=== PATIENT | female | born 1980 | race Caucasian/White ===

== ENCOUNTER 2020-02-01 10:00 | Outpatient (CLI) | payer BC, SELFPAY ==
[2020-02-01 10:24] LABS: Basophils Absolute Auto 0.1 K/mm3 (0.0-0.1); Basophils Percent Auto 0.8 % (0.2-1.2); Eosinophils Absolute Auto 0.3 K/mm3 (0-0.3); Eosinophils Percent Auto 3.7 % (0-4.4); Hematocrit 42.7 % (37.0-47.0); Hemoglobin 14.5 g/dL (12.0-15.0); Immature Granulocyte Absolute 0.02 K/mm3 (0.00-0.031); Immature Granulocyte Percent A 0.3 % (0-0.5); Lymphocytes Absolute Auto 1.87 K/mm3 (0.9-3.2); Lymphocytes Percent Auto 24.1 % (18.3-44.2); Mean Corpuscular Hemoglobin 31.9 pg (26-34); Mean Corpuscular Volume 93.8 fl (80-100); Mean Platelet Volume 10.2 fl (7.4-10.4); Monocytes Absolute Auto 0.7 K/mm3 (0.1-0.6); Monocytes Percent Auto 8.8 % (2.6-8.5); Neutrophils Absolute Auto 4.9 K/mm3 (1.3-6.7); Neutrophils Percent Auto 62.3 % (45.5-73.1); Platelet Count Result 259 k/mm3 (150-375); Red Blood Count 4.55 M/mm3 (4.2-5.4); Red Cell Distribution Width 12.4 % (11.5-14.5); White Blood Count 7.8 K/mm3 (4.5-10.0)
[2020-02-01 10:43] LABS: Alanine Aminotransferase 15 U/L (4-35); Albumin Level 4.4 g/dL (3.5-5.1); Alkaline Phosphatase 86 U/L (38-126); Aspartate Amino Transferase 29 U/L (14-36); Bilirubin,Total 0.5 mg/dL (0.2-1.3); Blood Urea Nitrogen 14 mg/dL (7-17); Calcium 9.1 mg/dL (8.4-10.2); Carbon Dioxide 27 mmol/L (22-30); Chloride 105 mmol/L (98-107); Cholesterol 188 mg/dL (0-200); Estimated Glomerular Filt Rate > 60; Glucose 88 mg/dL (65-105); HDL Direct 66 mg/dL; Sodium 136 mmol/L (137-145); Triglycerides 131 mg/dL (<150)
[2020-02-01 10:53] LABS: LDL Cholesterol Direct 95 mg/dL
[2020-02-01 11:11] LABS: Thyroid Stimulating Hormone 0.587 uIU/mL (0.465-4.680)
[2020-02-01 11:20] LABS: Vitamin D 25 Hydroxy 41.2 ng/mL
[2020-02-03 21:38] LABS: FSH 5.6 mIU/mL (***)
== END 2020-02-01 10:01 | disposition home or self-care (01) ==
PROVIDERS: Visit Provider Obstetrics & Gynecology
DX: Z01.419 Encounter for gynecological examination (general) (routine) without abnormal findings (principal)
CPT/HCPCS: 36415; 80053; 80061; 82306; 83001; 84443; 85025

== ENCOUNTER 2021-02-12 09:49 | Outpatient (CLI) | payer OTHER, SELFPAY ==
[2021-02-12 19:20] LABS: Basophils Absolute Auto 0.1 K/mm3 (0.0-0.1); Basophils Percent Auto 1.1 % (0.2-1.2); Eosinophils Absolute Auto 0.4 K/mm3 (0-0.3); Eosinophils Percent Auto 7.8 % (0-4.4); Hematocrit 43.4 % (37.0-47.0); Hemoglobin 14.5 g/dL (12.0-15.0); Immature Granulocyte Absolute 0.02 K/mm3 (0.00-0.031); Immature Granulocyte Percent A 0.4 % (0-0.5); Lymphocytes Absolute Auto 1.44 K/mm3 (0.9-3.2); Lymphocytes Percent Auto 25.6 % (18.3-44.2); Mean Corpuscular HGB Conc 33.4 g/dl (32-36); Mean Corpuscular Hemoglobin 32.2 pg (26-34); Mean Corpuscular Volume 96.2 fl (80-100); Mean Platelet Volume 10.7 fl (7.4-10.4); Monocytes Absolute Auto 0.4 K/mm3 (0.1-0.6); Monocytes Percent Auto 7.3 % (2.6-8.5); Neutrophils Absolute Auto 3.3 K/mm3 (1.3-6.7); Neutrophils Percent Auto 57.8 % (45.5-73.1); Platelet Count Result 294 k/mm3 (150-375); Red Blood Count 4.51 M/mm3 (4.2-5.4); Red Cell Distribution Width 12.2 % (11.5-14.5); White Blood Count 5.6 K/mm3 (4.5-10.0)
[2021-02-12 19:22] LABS: Alanine Aminotransferase 14 U/L (4-35); Alkaline Phosphatase 78 U/L (38-126); Anion Gap 7 mmol/L (8-16); Aspartate Amino Transferase 25 U/L (14-36); Bilirubin,Total 0.5 mg/dL (0.2-1.3); Blood Urea Nitrogen 15 mg/dL (7-17); Calcium 9.5 mg/dL (8.4-10.2); Carbon Dioxide 24 mmol/L (22-30); Chloride 108 mmol/L (98-107); Cholesterol 183 mg/dL (0-200); Estimated Glomerular Filt Rate > 60; Glucose 91 mg/dL (65-105); HDL Direct 69 mg/dL; Potassium 4.3 mmol/L (3.4-5.0); Sodium 139 mmol/L (137-145); Triglycerides 98 mg/dL (<150)
[2021-02-12 19:32] LABS: LDL Cholesterol Direct 92 mg/dL
[2021-02-12 20:07] LABS: Vitamin D 25 Hydroxy 45.7 ng/mL
[2021-02-12 20:21] LABS: Thyroid Stimulating Hormone Reflex 0.374 uIU/mL (0.465-4.68)
[2021-02-12 20:49] LABS: Free T4 Free Thyroxine Reflex 1.17 ng/dL (0.78-2.19)
[2021-02-12 21:44] LABS: Total Triiodothyronine (T3) 1.56 NG/ML (0.97-1.69)
[2021-02-16 19:01] LABS: Testosterone Free 1.7 pg/mL (0.1-6.4); Testosterone Total 19 ng/dL (2-45)
== END 2021-02-12 09:50 | disposition home or self-care (01) ==
LOC: ANHBWCLAB 09:51
PROVIDERS: Visit Provider Obstetrics & Gynecology
DX: Z00.00 Encounter for general adult medical examination without abnormal findings (principal); R68.82 Decreased libido
CPT/HCPCS: 36415; 80053; 80061; 82306; 84402; 84403; 84439; 84443; 84480; 85025

== ENCOUNTER 2021-03-01 13:31 | Outpatient (CLI) | payer OTHER, SELFPAY | END 2021-03-01 13:32 | disposition home or self-care (01) | LOC: ANHBWCLAB 13:33 | PROVIDERS: Visit Provider Obstetrics & Gynecology | DX: R79.89 Other specified abnormal findings of blood chemistry (principal) | CPT/HCPCS: 36415; 84436 ==

== ENCOUNTER → 2021-05-10 12:01 | Outpatient (CLI) | payer OTHER, SELFPAY ==
--- NOTE | ~2021-05-10 | XR_ITS ---
EXAMINATION: XR foot RT min 3V, XR toe 1st RT min 2V EXAM DATE: 05/10/2021 12:31 (accession [id number]), 05/10/2021 12:32 (accession [id number]) INDICATION: Right 1st MTP pain after tripping and hitting toe . Initial encounter. Pt tripped over he r dog x 3 weeks ago. Right 1st MTP pain with swelling since. TECHNIQUE: Right foot dorsoplantar, lateral and oblique projections obtained and reviewed. Right 1s t toe frontal, lateral and oblique projections obtained and reviewed. There is no prior study for comparison. FINDINGS: Right metatarsal bones unremarkable. 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 There are no acute right foot, 1st toe fractures or dislocations identified. T here is no subcutaneous gas. The soft tissue is unremarkable. There are no radiopaque foreign bodi es. Small posterior, inferior calcaneal spurs. IMPRESSION: No acute osseous findings. Reviewed, dictated and finalized at location B. IMPRESSION: No acute osseous findings. IMPRESSION: No acute osseous findings.
== END ==
PROVIDERS: PCP Hospitalist; Visit Provider Chiropractor
DX: M79.674 Pain in right toe(s) (principal)
CPT/HCPCS: 73630; 73660

== ENCOUNTER 2021-05-10 14:25 | Outpatient (CLI) | payer OTHER, SELFPAY ==
--- NOTE | ~2021-05-10 | MM_ITS ---
EXAMINATION: MM screening elsie BI w olena HISTORY: Screening mammogram TECHNIQUE: Craniocaudal and mediolateral oblique 3-D tomosynthesis images were obtained and synthetic 2-D images were generated. CAD analysis was submitted and interpreted. COMPARISON: No prior mammogram is available for comparison at this institution. BREAST PARENCHYMAL COMPOSITION: There are scattered areas of fibroglandular density. FINDINGS: There is no evidence of suspicious mass, calcification, or architectural distortion to sugg est malignancy in either breast. There has been no suspicious interval change. IMPRESSION: 1. No mammographic evidence of malignancy. 2. Recommend routine screening mammography in one year. BI-RADS Category 1: Negative Reviewed, dictated and finalized at location A.
== END 2021-05-10 14:26 | disposition home or self-care (01) ==
LOC: ANHIMG 14:27
PROVIDERS: PCP Hospitalist; Visit Provider Obstetrics & Gynecology
DX: Z12.31 Encounter for screening mammogram for malignant neoplasm of breast (principal)
CPT/HCPCS: 77063; 77067

== ENCOUNTER → 2021-08-09 13:15 | Outpatient (CLI) | payer OTHER, SELFPAY ==
--- NOTE | ~2021-08-09 | US_ITS ---
EXAMINATION: US thyroid DATE: 08/09/2021 13:43 INDICATION: Other specified abnormal findings of blood chemistry. Thyroid nodules. TECHNIQUE: Multiple ultrasound images of the thyroid were obtained. COMPARISON: 08/05/2018 FINDINGS: The right thyroid lobe measures 7.4 x 2.3 x 2.3 cm. The left thyroid lobe measures 7.4 x 2.6 x 2.7 c m. There is heterogeneous echogenicity with coarsened echotexture throughout both thyroid lobes mallory g with a few thyroid nodules. There are multiple bilateral thyroid nodules, the largest in the inferi or left thyroid is a complex solid 3.2 cm TI RADS 4 nodule not significantly changed since at the farzana e of a biopsy on 06/09/2017 at which time the nodule measured 3.0 cm and with biopsy pathology consis tent with benign follicular nodule with features of hemorrhagic cyst . Remaining nodules in the left and right thyroid including combination of 1.5 cm or smaller TI RADS 3 and TI-RADS 4 nodules which d o not appear significantly changed since the prior study currently for differences in technique. Ther e are also a couple 1.1 and 1.2 cm TI RADS 1 cystic nodules in the left thyroid. IMPRESSION: 1. No significant interval change in a multinodular goiter, the largest a 3.2 cm TI RADS 4 nodule in the left thyroid with previous benign biopsy. Reviewed, dictated and finalized at location . 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 No significant interval change in a multinodular goiter, the largest a 3.2 c m TI RADS 4 nodule in the left thyroid with previous benign biopsy.
== END ==
PROVIDERS: PCP Hospitalist; Visit Provider Internal Medicine Endocrinology, Diabetes & Metabolism
DX: E04.1 Nontoxic single thyroid nodule (principal); R79.89 Other specified abnormal findings of blood chemistry
CPT/HCPCS: 76536

== ENCOUNTER 2021-10-04 12:08 | Outpatient (CLI) | payer OTHER, SELFPAY ==
--- NOTE | ~2021-10-04 | NM_ITS ---
EXAMINATION: NM thyroid scan w uptake DATE: 10/05/2021 13:36 INDICATION: Other specified abnormal findings of blood chemistry. Low TSH level. Nontoxic single thyr oid nodule. COMPARISON: None. TECHNIQUE: 394 microcuries I-123 was administered orally in capsule form. Scintigraphic images of th e thyroid gland were obtained at 24 hours. Thyroid uptake was calculated by the technologist. FINDINGS: The thyroid uptake is 40.1% (normal 10-30%), with the right lobe measuring 18.4% uptake and the left 22.7%. There is no focal area of decreased or increased activity to suggest hypofunctioning or hyperf unctioning nodule. IMPRESSION: 1. Graves' disease with diffuse increased 24-hour iodine uptake with otherwise normal scintigraphy w ith no evident thyroid nodules. Reviewed, dictated and finalized at location A. CLEANER IMPRESSION: 1. Graves' disease with diffuse increased 24-hour iodine uptake with otherwise normal scintigraphy with no evident thyroid nodules.
== END 2021-10-04 12:09 | disposition home or self-care (01) ==
PROVIDERS: PCP Hospitalist; Visit Provider Internal Medicine Endocrinology, Diabetes & Metabolism
DX: R79.89 Other specified abnormal findings of blood chemistry (principal); E05.01 Thyrotoxicosis with diffuse goiter with thyrotoxic crisis or storm
CPT/HCPCS: 78014; A9516

== ENCOUNTER 2021-10-25 09:48 | Outpatient (CLI) | payer BC, SELFPAY ==
[2021-10-25 10:49] LABS: Thyroid Stimulating Hormone 0.286 uIU/mL (0.465-4.680)
[2021-10-25 11:04] LABS: Free T4 Free Thyroxine 1.12 ng/mL (0.78-2.19)
[2021-10-29 19:49] LABS: Triiodothyronine T3 Free 3.6 pg/mL (2.3-4.2)
== END 2021-10-25 09:49 | disposition home or self-care (01) ==
LOC: ANHLAB 09:53
PROVIDERS: PCP Hospitalist; Visit Provider Internal Medicine Endocrinology, Diabetes & Metabolism
DX: E04.1 Nontoxic single thyroid nodule (principal); R79.89 Other specified abnormal findings of blood chemistry
CPT/HCPCS: 36415; 84439; 84443; 84481

== ENCOUNTER 2022-02-07 11:03 | Outpatient (CLI) | payer BC, SELFPAY ==
[2022-02-07 13:17] LABS: Free T4 Free Thyroxine 1.06 ng/mL (0.78-2.19)
[2022-02-07 13:30] LABS: Thyroid Stimulating Hormone 0.592 uIU/mL (0.465-4.680)
== END 2022-02-07 11:04 | disposition home or self-care (01) ==
LOC: ANHWCLAB 11:05
PROVIDERS: PCP Hospitalist; Visit Provider Internal Medicine Endocrinology, Diabetes & Metabolism
DX: E05.00 Thyrotoxicosis with diffuse goiter without thyrotoxic crisis or storm (principal)
CPT/HCPCS: 36415; 84439; 84443

== ENCOUNTER → 2022-07-16 12:10 | Outpatient (CLI) | payer OTHER, SELFPAY ==
--- NOTE | ~2022-07-16 | XR_ITS ---
XR shoulder RT min 2V DATE: 07/16/2022 14:08 INDICATION: Acute right shoulder pain TECHNIQUE: 4 views COMPARISON: None FINDINGS: No fracture or dislocation, periosteal reaction or bone destruction or abnormal soft tissue calcification. Normal alignment and preservation of joint spaces at the acromioclavicular and glenoh umeral joints. IMPRESSION: Negative Reviewed, dictated and finalized at location B. 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
== END ==
PROVIDERS: PCP Hospitalist; Visit Provider Chiropractor
DX: M25.511 Pain in right shoulder (principal)
CPT/HCPCS: 73030

== ENCOUNTER 2022-09-05 09:16 | Outpatient (CLI) | payer BC, OTHER, SELFPAY ==
--- NOTE | ~2022-09-05 | MM_ITS ---
EXAMINATION: MM screening elsie BI w olena HISTORY: Screening mammogram TECHNIQUE: Craniocaudal and mediolateral oblique 3-D tomosynthesis images were obtained and synthetic 2-D images were generated. CAD analysis was submitted and interpreted. COMPARISON: 05/10/2021 BREAST PARENCHYMAL COMPOSITION: There are scattered areas of fibroglandular density. FINDINGS: No suspicious mass, calcification, or architectural distortion are identified in either jesus ast to suggest malignancy. There has been no suspicious interval change. IMPRESSION: 1. No mammographic evidence of malignancy. 2. Recommend routine screening mammography in one year. BI-RADS Category 1: Negative Reviewed, dictated and finalized at location A. 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
== END 2022-09-05 09:17 | disposition home or self-care (01) ==
PROVIDERS: PCP Hospitalist; Visit Provider Obstetrics & Gynecology
DX: Z12.31 Encounter for screening mammogram for malignant neoplasm of breast (principal)
CPT/HCPCS: 77063; 77067

== ENCOUNTER 2023-02-20 08:28 | Outpatient (CLI) | payer BC, OTHER, SELFPAY ==
--- NOTE | ~2023-02-20 | MR_ITS ---
EXAMINATION: MR lumbar spine wo con DATE: 02/20/2023 08:58 INDICATION: Back pain TECHNIQUE: Magnetic resonance imaging (MRI) of the lumbar spine was performed without intravenous con trast. Sequences included sagittal T2-weighted FSE, sagittal T2-weighted FS FSE, sagittal T1-weighted FSE, and axial T2-weighted FSE. COMPARISON: None FINDINGS: Alignment is normal. Vertebral body heights are normal. Normal marrow signal. Disc heights are cole l. The conus medullaris terminates at L1-L2. There is normal signal in the caudal spinal cord. Parave rtebral soft tissues are unremarkable. The following disc levels are specifically discussed: T12-L1 and L1-L2: The disc does not extend beyond the endplate margin. There is mild bilateral facet joint osteoarthritis. There is no neural foraminal stenosis. There is no central canal stenosis. L2-L3: Minimal disc protrusions at the bilateral foraminal zones. There is mild bilateral facet joint osteoarthritis. There is minimal left neural foraminal stenosis. There is no central canal stenosis. L3-L4: Mild disc protrusions at the bilateral foraminal zones. There is mild bilateral facet joint os teoarthritis. There is mild bilateral neural foraminal stenosis. There is no central canal stenosis. L4-L5: Moderate diffuse disc bulge. There is mild left and mild to moderate right facet joint osteoar thritis. There is mild left and moderate right neural foraminal stenosis. There is no central canal s tenosis. Mild stenosis of the left and right lateral recesses. L5-S1: Disc is mildly bulging. There is mild bilateral facet joint osteoarthritis. There is mild bila teral neural foraminal stenosis. There is no central canal stenosis. IMPRESSION: 1. Minimal to mild lumbar spondylosis. Reviewed, dictated and finalized at location L.
== END 2023-02-20 08:29 ==
PROVIDERS: PCP Hospitalist; Visit Provider Nurse Practitioner Family
DX: M47.896 Other spondylosis, lumbar region (principal)
CPT/HCPCS: 72148

== ENCOUNTER 2023-08-14 15:32 | Outpatient (CLI) | payer OTHER, SELFPAY ==
[2023-08-14 16:31] LABS: Hematocrit 43.8 % (37.0-47.0); Hemoglobin 14.6 g/dL (12.0-15.0); Mean Corpuscular HGB Conc 33.3 g/dl (32-36); Mean Corpuscular Volume 96.1 fl (80-100); Mean Platelet Volume 10.3 fl (7.4-10.4); Platelet Count Result 264 k/mm3 (150-375); Red Blood Count 4.56 M/mm3 (4.2-5.4); Red Cell Distribution Width 11.8 % (11.5-14.5); White Blood Count 6.9 K/mm3 (4.5-10.0)
[2023-08-14 16:44] LABS: Alanine Aminotransferase 32 U/L (6-35); Albumin Level 4.4 g/dL (3.5-5.1); Alkaline Phosphatase 104 U/L (38-126); Anion Gap 9 mmol/L (8-16); Aspartate Amino Transferase 44 U/L (14-36); Bilirubin,Total 0.4 mg/dL (0.2-1.3); Blood Urea Nitrogen 17 mg/dL (7-17); Calcium 9.4 mg/dL (8.4-10.2); Carbon Dioxide 26 mmol/L (22-30); Chloride 102 mmol/L (98-107); Estimated Glomerular Filt Rate > 60; Glucose 82 mg/dL (65-110); Potassium 3.9 mmol/L (3.4-5.0); Sodium 137 mmol/L (137-145)
[2023-08-14 16:47] LABS: Cholesterol 214 mg/dL (0-200); HDL Direct 62 mg/dL; Magnesium 2.1 mg/dL (1.6-2.3); Triglycerides 201 mg/dL (<150)
[2023-08-14 16:58] LABS: LDL Cholesterol Direct 101 mg/dL
[2023-08-14 17:15] LABS: Thyroid Stimulating Hormone 0.882 uIU/mL (0.465-4.680)
[2023-08-14 17:23] LABS: Free T4 Free Thyroxine 1.25 ng/mL (0.78-2.19)
== END 2023-08-14 15:33 | disposition home or self-care (01) ==
LOC: ANHWCLAB 15:35
PROVIDERS: PCP Hospitalist; Visit Provider Internal Medicine Endocrinology, Diabetes & Metabolism
DX: E04.1 Nontoxic single thyroid nodule (principal); E05.90 Thyrotoxicosis, unspecified without thyrotoxic crisis or storm; R25.2 Cramp and spasm
CPT/HCPCS: 36415; 80053; 80061; 82607; 83735; 84439; 84443; 85027

== ENCOUNTER → 2023-10-06 10:08 | Outpatient (CLI) | payer OTHER, SELFPAY ==
--- NOTE | ~2023-10-06 | MM_ITS ---
EXAMINATION: MM screening elsie BI w olena HISTORY: Screening TECHNIQUE: Craniocaudal and mediolateral oblique 3-D tomosynthesis images were obtained and synthetic 2-D images were generated. CAD analysis was submitted and interpreted. COMPARISON: Comparison to multiple prior studies sequentially, with oldest reviewed study dated 05/10. BREAST PARENCHYMAL COMPOSITION: The breasts are heterogeneously dense, which may obscure small masses . FINDINGS: There is a new focal asymmetry in the upper outer quadrant of the left breast. The right br east is stable without evidence for malignancy. IMPRESSION: 1. New left breast asymmetry. 2. Additional mammographic views and possible breast ultrasound are recommended. BI-RADS Category 0: Incomplete: Needs additional imaging evaluation. Reviewed, dictated and finalized at location A. 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 New left breast asymmetry. 2. Additional mammographic views and possible breast ultrasound are recommended . BI-RADS Category 0: Incomplete: Needs additional imaging evaluation.
== END ==
PROVIDERS: PCP Obstetrics & Gynecology; Visit Provider Obstetrics & Gynecology
DX: Z12.31 Encounter for screening mammogram for malignant neoplasm of breast (principal); R92.8 Other abnormal and inconclusive findings on diagnostic imaging of breast
CPT/HCPCS: 77063; 77067

== ENCOUNTER 2023-10-31 08:13 | Outpatient (CLI) | payer OTHER, SELFPAY ==
--- NOTE | ~2023-10-31 | MM_ITS ---
Corrected Report Order # Associated 11/03/2023SLJ This report was recreated on 11/03/2023. Original report was signed by Reuben Bragg M.D. on 10/31/2023 11:40 CDT. EXAMINATION: DIAGNOSTIC BREAST CARLEY - LT; US breast LT limited HISTORY: New left breast asymmetry reported on October 06, 2023 screening mammogram, upper outer quadrant TECHNIQUE: Additional 3-D tomosynthesis images of the left breast were performed and synthetic 2-D images were generated. CAD analysis was submitted and interpreted. High resolution upper outer quadrant left breast ultrasound was performed. COMPARISON: October 06, 2023 bilateral screening mammogram FINDINGS: MAMMOGRAPHIC FINDINGS: Circumscribed approximately 7 mm reniform density is noted in the posterior upper outer quadrant left breast, likely benign intramammary lymph node. No suspicious mass, architectural distortion, malignant calcification, skin thickening or retraction is otherwise evident. ULTRASOUND: 12-1:00 3 cm from nipple: Circumscribed oval nearly sonolucent lesion without internal vascularity or posterior shadowing, measuring approximately 3.8 x 4.5 point by 3.3 mm 1:00 7 cm from nipple: Parallel circumscribed 2.6 mm sonolucency without internal vascularity or posterior shadowing, benign in appearance 12:00 7 cm from nipple: Parallel circumscribed 3.3 x 9.6 x 8.2 mm septated relatively sonolucent lesion without internal vascularity or posterior shadowing, likely benign 3:00 subareolar area: 2.9 x 3.1 x 3.8 mm cyst IMPRESSION: 1. Probable benign findings 2. Six-month targeted left breast ultrasound follow-up is recommended BI-RADS category 3, probably benign findings. Reviewed, dictated and finalized at location A. MTDD
== END 2023-10-31 08:14 ==
LOC: MICIMG 08:14
PROVIDERS: PCP Obstetrics & Gynecology; Visit Provider Obstetrics & Gynecology
DX: R92.8 Other abnormal and inconclusive findings on diagnostic imaging of breast (principal)
CPT/HCPCS: 76642; 77061; 77065; G0279

== ENCOUNTER 2024-05-31 10:12 | Outpatient (CLI) | payer OTHER, SELFPAY ==
--- NOTE | ~2024-05-31 | US_ITS ---
US breast LT limited INDICATION: Six-month follow-up left breast mass TECHNIQUE: Dedicated Limited left breast ultrasound COMPARISON: Ultrasound dated 10/31/2023 FINDINGS: The left breast is/are composed of normal heterogeneous echotexture without focal solid or cystic mass. The small 5 mm cyst seen on prior examination not identified on the current study. IMPRESSION: 1: Normal limited left breast ultrasound. Routine yearly screening mammogram and regular clinical breast examination are recommended. BI-RADS CATEGORY 1 - NEGATIVE Reviewed, dictated and finalized at location B.
== END 2024-05-31 10:13 | disposition home or self-care (01) ==
LOC: MICIMG 10:13
PROVIDERS: PCP Obstetrics & Gynecology; Visit Provider Obstetrics & Gynecology
DX: R92.8 Other abnormal and inconclusive findings on diagnostic imaging of breast (principal)
CPT/HCPCS: 76642

== ENCOUNTER 2024-12-03 11:05 | Outpatient (CLI) | payer OTHER, SELFPAY ==
--- NOTE | ~2024-12-03 | MM_ITS ---
EXAMINATION: MM screening elsie BI w olena HISTORY: Screening TECHNIQUE: Craniocaudal and mediolateral oblique 3-D tomosynthesis images were obtained and synthetic 2-D images were generated. CAD analysis was submitted and interpreted. COMPARISON: Comparison to multiple prior studies sequentially, with oldest reviewed study dated 05/10. BREAST PARENCHYMAL COMPOSITION: Not dense: There are scattered areas of fibroglandular density. FINDINGS: There is no evidence of suspicious mass, calcification, or architectural distortion to sugg est malignancy in either breast. There has been no suspicious interval change. IMPRESSION: 1. No mammographic evidence of malignancy. 2. Recommend routine screening mammography in one year. BI-RADS Category 1: Negative Reviewed, dictated and finalized at location B.
== END 2024-12-03 11:06 | disposition home or self-care (01) ==
LOC: MICIMG 11:06
PROVIDERS: PCP Nurse Practitioner Obstetrics & Gynecology; Visit Provider Nurse Practitioner Obstetrics & Gynecology
DX: Z12.31 Encounter for screening mammogram for malignant neoplasm of breast (principal)
CPT/HCPCS: 77063; 77067

== ENCOUNTER 2025-01-17 16:16 | Emergency (ER) | payer OTHER, SELFPAY ==
--- NOTE | ~2025-01-17 | XR_ITS ---
EXAMINATION: XR foot LT min 3V DATE: 01/17/2025 16:46 INDICATION: Pain and swelling at the distal left first metatarsal post injury TECHNIQUE: Dorsoplantar, two oblique and lateral views of the left foot were obtained. COMPARISON: None. FINDINGS: Alignment is normal. No fracture. Mild osteoarthritis at the first metatarsophalangeal joint. Minimal osteoarthritis a few tarsometatarsal and interphalangeal joints. Mild soft tissue swelling medial to the head of the first metatarsal. There is a tiny density measuring 1 mm in maximal dimension which could represent a dystrophic calcification versus foreign body potentially along the skin surface but no deeper than 1 mm. IMPRESSION: 1. No acute osseous abnormality. 2. 1 mm density at or within 1 mm of the skin surface medial to the head of the first metatarsal whic h could represent a dystrophic calcification or foreign body. Reviewed, dictated and finalized at location A. IMPRESSION: 1. No acute osseous abnormality. 2. 1 mm density at or within 1 mm of the skin surface medial to the head of the first metatarsal which could represent a dystrophic calcification or foreign b carolann.
--- OUTSIDE RECORDS SUMMARY | 2025-01-17 16:19 | XMS_ITS | Data Portability ---
Author Organization [facility], Main Office Address [address] [facility] [address] [place] [address] Assessment No assessment recorded. Plan of Treatment Reminders Order Date Submit Date Provider Last Modified By Organization Details Last Modified Time Details Appointments None record ed. Lab None record ed. Referral None record ed. Procedures biopsy , skin (PROC) 024 03/17/20 24 [email or web address] Not available 09:53:02 Surgeries None record ed. Imaging None record ed. Medication Orders None record ed. Patient TargetsNo targets recorded. Patient Instructions Encounter Date Encounter Id Patient Instructions Last Modified By Organization Details Last Modified Time 03/17/2024 [id number] Informed consent . EtOH prep. 1% lidocaine with epinephrine. Shave biopsy from: right medial buttock, below back AlCL3 and cautery hemostasis. Aquaphor, bandage and wound care given. Will call pt with path. [email or web address] Not available 03/17/2024 09:53:43 Reason for Referral None Reported. 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 Medical Equipment None Reported. Allergies Allergen ID Allergen Name Allergen Category Reaction Reaction Severity Criticality Documentation Date Start Date Code Code System Note Provider Name and Address Organization Details Recorded Time 7425 Product containin g penicilli n (product) medicatio n Not available Not available Not available 02/17/2024 30031 8001 SNOMED Chandrakant CULVER [facility] [place] 4 15:33:58 Medications Name Sig Start Date Stop Date Status Note LastModified by Organization Details LastModified Time azithromycin 250 mg tablet TAKE 2 TABLETS BY MOUTH ON DAY 1, AND THEN TAKE 1 TABLET BY MOUTH ONCE A DAY ON DAY 2 THROUGH DAY 5 active Not Available Not Available No t Available hydroquinone 4 % topical cream APPLY TOPICALLY TO BROWN PATCHES DAILY AT NIGHT 30 MINUTES PRIOR TO BEDTIME active Not Available Not Available No t Available methimazole 5 mg tablet TAKE 1 TABLET BY MOUTH ONCE DAILY active Not Available Not Available No t Available diclofenac sodium 75 mg tablet,delaye d release TAKE 1 TABLET BY MOUTH TWICE DAILY FOR 90 DAYS (TAKE WITH FOOD AND MILK) active Not Available Not Available No t Available hydroxychloro quine 200 mg tablet TAKE 1 TABLET BY MOUTH TWICE DAILY active Not Available Not Available No t Available Tri-Amanda 0.01 %-4 %-0.05 % topical cream APPLY TO THE BROWN PATCHES TOPICALLY ONCE DAILY AT NIGHT 30 MINUTES BEFORE BEDTIME active Not Available Not Available No t Available Leyda Fe /20 (28) 1 mg-20 mcg (21)/75 mg (7) tablet TAKE 1 TABLET BY MOUTH ONCE DAILY active Not Available Not Available No t Available Vitals None Recorded Social History None recorded. Functional Status None recorded. Mental Status None recorded. Family History Nothing Reported. Medical History No medical history recorded. Gynecological HistoryNo gynecological history recorded. Obstetrics History GPAL:G 0 P 0 0 0 0 Past Encounters Encounter ID Performer Location Encounter Start Date Encounter Closed Date Diagnosis/Indication Diagnosis SNOMED-CT Code Diagnosis ICD10 Code Diagnosis Note [id number] Jerry Fonseca MD Main Office [address] [facility] [address] [place] [phone] 03/17/2024 09:28:21 03/17/2024 09:54:08 Neoplasm of uncertain behavior of skin 51267043 D48.5 Health Concerns Section Related Observation LastModified by Organization Detai ls LastModified Time None Recorded Concern Status LastModified by Organization Details LastModified Time None Recorded Advance Directives Directive None Recorded Payers Encounter Date Sequence Insurance Name Policy Number Policy Troy Covered Member ID Troy Member ID Guarantor Name 03/17/2024 1 [facility] [id number] Kelly Vitale [id number] Kelly Vitale Notes Date Note Type Note Provider Name and Address Organization Details Recorded Time 03/17/2024 text/html For removal of irritating r medial buttock smooth papule, r/o nevus, neurofibroma, neoplasm Jerry Fonseca MD [address] [facility] [address], [place], [phone], [facility] 03/17/2024 09:53:57 OBGyn Episode No OBEpisode recorded.
--- OUTSIDE RECORDS SUMMARY | 2025-01-17 16:19 | XMS_ITS | Encounter Summary ---
Author Organization [facility] Address [address] [facility] [place] [address] Care Team Providers Care Social Media Project Manager Name Role Phone Unavailable Primary Care Provider Unavailabl e Encounter Details Date Type Department Care Team (Late st Contact Info) Description 03/19/2024 Lab Requisition [facility] - DermPath Lab [address] [facility] [place] [phone] Jerry Fonseca MD [address] [place] [phone] Social History Tobacco Use Types Packs/Day Years Used Date Smoking Tobacco: Never Assessed Comments Unknown Sex and Gender Information Value Date Recorded Sex Assigned at Not on file Legal Sex Female 10:56 AM CDT Gender Identity Not on file Sexual Orientation Not on file documented as of this encounter Plan of Treatment Not on file documented as of this encounter Procedures Procedure Name Priority Date/Time Associated Diagnosis Comments DERMATOPATHOLOGY Routine 03/17/2024 3:33 AM CDT documented in this encounter Results * DERMATOPATHOLOGY (03/17/2024 3:33 AM CDT) Case Report Dermatopathology Report Case: [id number] Authorizing Provider: Jerry Fonseca MD Collected: 03/17/2024 03:33 AM Ordering Location: [facility] - Received: 03/19/2024 12:42 PM DermPath Lab Pathologist: Yokasta Flores MD Specimen: Skin, right medial buttock 2:01 PM CDT DERMATOPATHOLOGY LABORATORY Final Diagnosis Specimen A. SKIN, right medial buttock: INTRADERMAL MELANOCYTIC NEVUS WITH CONGENITAL FEATURES (D22.9) 2:01 PM CDT DERMATOPATHOLOGY LABORATORY at 1401 CDT Clinical History Nevus, neurofibroma,r/o neoplasm 4 2:01 PM CDT DERMATOPATHOLOGY LABORATORY Gross Description Specimen A: Received is one formalin filled container labeled with the patient's name and designated right medial buttock. The specimen consists of a shave biopsy measuring 4x4x3 mm. Jar 0. 4 2:01 PM CDT DERMATOPATHOLOGY LABORATORY Microscopic Description Specimen A. SKIN, right medial buttock: There are nests of cytologically bland melanocytes within the dermis. Some of these melanocytes are concentrated around blood vessels and adnexal structures. 4 2:01 PM CDT DERMATOPATHOLOGY LABORATORY Disclaimer An external and internal positive and negative controls are appropriate for the histochemical, immunohistochemical and immunofluorescence stain(s) in this case (if any), except where stated explicitly. The performance characteristics of the stain(s) cited in this report were developed and its performance characteristic determined by the Dermatopathology Laboratory at [facility], directed by Dr. Sagrario Pfeiffer. These tests need not be, and therefore are not, approved by the [place] Food and Drug Administration. The tests are used for clinical purposes. Billing Codes Specimen Charges Stain Charges 01657 1 4 2:01 PM CDT DERMATOPATHOLOGY LABORATORY Embedded Images 4 2:01 PM CDT DERMATOPATHOLOGY LABORATORY Pathology/Cytolo gy TISSUE SPECIMEN FROM SKIN / Unknown 03/17/2024 3:33 AM CDT 03/19/2024 12:42 PM CDT us Jerry Fonseac MD LAB - PATHOLOGY/CYTOLOGY ORDERAB LES Final Result DERMATOPATHOLOGY LABORATORY [facility] - Department of Dermatology [address], [address] [phone] documented in this encounter Visit Diagnoses Not on filedocumented in this encounter
--- OUTSIDE RECORDS SUMMARY | 2025-01-17 16:19 | XMS_ITS | Clinical Summary ---
Author Organization [facility] Address [address] [place] [address] Care Team Providers Care Pot Fluxer Name Role Phone Nahun Olmos MD Primary Care Provider [phone] Allergies Active Allergy Reactions Criticality Noted Date Comments Penicillins Unknown childhood Medications cetirizine 10 mg capsule Take 10 mg by mouth daily Active beclomethasone (QVAR) 40 mcg/actuation inhaler Inhale 1 puff 2 (two) times a day Rinse mouth with water after use. Do not swallow. 8.7 g 2 1 Active Additional Information Patient not taking.Reported on 12/09/2024 methIMAzole (TAPAZOLE) 5 mg tablet Take 0.5 tablets (2.5 mg total) by mouth daily 2 Active hydrOXYchloroQU INE (PLAQUENIL) 200 mg tablet [address] (VOLTAREN) 75 mg EC tablet TAKE 1 TABLET BY MOUTH TWICE DAILY WITH FOOD AND MILK FOR 90 DAYS 3 Active norethindrone-e .estradioL-iron (Leyda Fe 09/06, ,) 1 mg-20 mcg (21)/75 mg (7) per tablet Take 1 tablet by mouth daily Active fish oil-dha-epa 1,200-144-216 mg capsule Take by mouth Activ e magnesium chloride 64 mg of elemental magnesium delayed release tabletIndicatio ns:hypomagnesem ia Take 1 tablet (64 mg of elemental magnesium total) by mouth Active escitalopram (LEXAPRO) 20 mg tablet Take 1 tablet (20 mg total) by mouth daily 90 tablet 3 5 12/10/19 26 Active busPIRone (BUSPAR) 5 mg tabletIndicatio ns:Generalized Anxiety Disorder Take 1 tablet (5 mg total) by mouth 3 (three) times a day 90 tablet 11 5 12/10/19 26 Active Active Problems Problem Noted Date Diagnosed Date Annual physical exam 09/02/2024 Rheumatoid arthritis involvi ng multiple sites with positive rheumatoid factor 09/02/2024 Encounter for hepatitis C sc reening test for low risk patient 09/02/2024 Need for hepatitis B screening test 09/02/2024 Screening for diabetes mellitus 09/02/2024 Screening for lipid disorders 09/02/2024 NAI (generalized anxiety disorder) 09/02/2024 Assessment & Plan (12/09/2024 8:01 PM CDT): Neoplasm of uncertain behavior of skin Chloasma 02/17/2024 Melanocytic nevus 02/17/2024 Non-scarring alopecia 02/17/2024 Leg cramps 08/13/2023 Assessment & Plan (08/13/2023 11:44 AM ASPARAGUS BUNCHER): New onset; sporadic Occurs with legs elevated and at night Magnesium and B12 labs ordered Inflammatory arthritis 01/30/2023 Assessment & Plan (08/13/2023 11:46 AM ASPARAGUS BUNCHER): Stable; follows with rheumatology Continue Plaquenil 200 mg Assessment & Plan (01/30/2023 2:02 PM CDT): Stable, follows with Rheumatology; reports improvement in symptoms Continues to adjust medications Currently on Plaquenil Acute pain of right shoulder 08/01/2022 Instability of right SI joint 08/01/2022 Assessment & Plan (01/30/2023 2:02 PM CDT): Continues to have right-sided hip pain; no significant relief with injection Has recent injury; most consistent with right greater trochanteric pain syndrome Home exercises given Assessment & Plan (08/01/2022 10:07 AM ASPARAGUS BUNCHER): Patient has instability of right SI joint; pain after running or intense activity; but able to perform functions at job Patient following with PT for management Concern for Ehler's Danlos Hypermobility Syndrome; patient referred to Rheumatology for further evaluation Hyperthyroidism 01/24/2022 Assessment & Plan (08/13/2023 11:45 AM ASPARAGUS BUNCHER): Stable, well controlled Appt with endocrinology tomorrow Continue Methimazole 2.5 mg daily Assessment & Plan (01/30/2023 2:01 PM CDT): Stable, well controlled; follows with Endocrinology; per patient normal labs No major issues at this time Continue to follow methimazole 2.5 mg daily Assessment & Plan (08/01/2022 10:08 AM ASPARAGUS BUNCHER): Stable, well controlled; patient follows with endocrinology for management; per patient TSH at target Continue Methimazole 2.5 mg daily Assessment & Plan (01/24/2022 12:24 PM CDT): Stable, improving; patient follows with Endocrinology Continue methimazole 2.5 mg daily Coccydynia 05/03/2021 Assessment & Plan (01/24/2022 12:24 PM CDT): Stable, improving; patient continues home exercise program Patient reports she is now able to complete a 5 K Continue with home exercises Assessment & Plan (10/25/2021 12:25 PM ASPARAGUS BUNCHER): Stable, improving; patient continues to have some dual soreness and achiness, limited ability to exercise and run which aggravates pain Patient to continue with home exercise program for next 3 months; if no significant improvement, would consider referral to outside specialist to re-evaluate pain Assessment & Plan (10/11/2021 1:10 PM ASPARAGUS BUNCHER): Continues to have significant pain and tailbone after injury and summer 2017 Has to still on all the time, has a dull aching pain with sitting and pain when is changing from sitting to standing Encouraged routine exercise, consider referral to physical therapy Assessment & Plan (07/26/2021 12:32 PM ASPARAGUS BUNCHER): Stable, improving; patient reports good response to physical therapy Will complete 6 sessions and then re-evaluate Exercise-induced asthma 10/26/2020 Assessment & Plan (01/30/2023 2:01 PM CDT): Stable, well controlled; rare use of medications, no recent wheezing Continue albuterol p.r.n.; QVAR 40 mg p.r.n. Assessment & Plan (01/24/2022 12:25 PM CDT): Stable, generally well controlled; patient reports symptoms only occur when she is outdoors for long durations, or after increased respiratory effort exercise Encouraged continued use of QVAR 40 mcg p.r.n. for exposure to triggers, and or albuterol 2 puffs p.r.n. for activities Assessment & Plan (10/11/2021 1:10 PM ASPARAGUS BUNCHER): Stable, well controlled; continue QVAR 1 puff b.i.d. Albuterol p.r.n. and for exercise Assessment & Plan (07/26/2021 12:32 PM ASPARAGUS BUNCHER): Stable, well controlled; continue QVAR 40 mcg, 1 puff b.i.d.; albuterol p.r.n. Assessment & Plan (10/26/2020 3:54 PM ASPARAGUS BUNCHER): Discussed with patient use of albuterol prior to exercise to reduce bronchspasm -can use inhaled steroid for seasonal worsening of symptoms. Chronic allergic rhinitis 10/26/2020 Assessment & Plan (08/01/2022 10:08 AM ASPARAGUS BUNCHER): Stable, generally well controlled Continue Cetirizine 10 mg daily; will switch to astelin nasal spray given excessive drying in cold weather with Flonase. Assessment & Plan (01/24/2022 12:25 PM CDT): Will, generally well controlled; patient reports symptoms are now manageable Continue Zyrtec 10 mg daily, Flonase 2 sprays each nostril daily Assessment & Plan (10/25/2021 12:26 PM ASPARAGUS BUNCHER): Has been worse over the last month, patient continues to use Zyrtec 10 mg, Flonase 50 mg 2 sprays each nostril daily, QVAR as needed for asthma Encouraged patient continue with general management Assessment & Plan (10/11/2021 1:11 PM ASPARAGUS BUNCHER): Stable, continue Flonase 2 sprays each nostril daily Assessment & Plan (07/26/2021 12:32 PM ASPARAGUS BUNCHER): Stable well controlled; continue Flonase 2 sprays each nostril daily Assessment & Plan (10/26/2020 3:55 PM ASPARAGUS BUNCHER): Stable, well controlled, good improvement with Flonase -continue with current medication and continue Zyrtec -if symptoms worsen with change in seasons, then patient can return to clinic to evaluate if additional medication is required Goiter 09/27/2020 Palpitations 09/13/2014 Overview (11/23/2016): Palpitations Assessment & Plan (01/24/2022 12:23 PM CDT): Well controlled, patient reports no further episodes of palpitations since starting methimazole Cardiac arrhythmia 09/13/2014 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 Resolved Problems Problem Noted Date Diagnosed Date Resolved Date 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 09/02/19 25 Premature beats 09/13/2014 09/27/2020 Overview (11/23/2016): Premature beats Encounters Date Type Department Care Team Description 12/09/2024 1:00 PM CDT Office Visit [facility] Primary Care at [address] [address] Daniella Stark NP NAI (generalized anxiety disorder) (Primary Dx) 12/09/2024 Orders Only [facility] Primary Care at [address] [address] Provider, MD Natasha from Last 3 Months Immunizations Immunization Administration Dates Next Due Influenza, Quadrivalent, Spl it, Preservative Free, Intramuscular 08/13/2023 Influenza, Trivalent, IM (MDV) 08/04/2021 Influenza, Unspecified 09/01/2024(Deferr ed: Patient Refused),05/24/2024(Deferred: Patient Refused),01/30/2023(Deferred: Patient Refused),05/18/2022,07/26/2021(Deferre d: Patient Refused),05/03/2021(Deferred: Patient Refused),05/03/2021(Deferred: Patient Refused),09/27/2020(Deferred: Patient Refused),08/18/2020(Deferred: Patient Refused),08/18/2020(Deferred: Patient Refused),08/18/2020(Deferred: Patient Refused),08/18/2019(Deferred: Patient Refused) [employer] SARS-CoV-2 Vaccination 10/24/2020 PPD TEST 01/05/2024 Surgical History Surgery Date Site/Laterality Comments LASIK 2000 Medical History Medical History Date Comments Hx Other Medical SVT, goiter, PV Cs, ; Comments: [facility] 09/19/2014 - Goiter 2011 EKG abnormality 2012 VPC's on EKG Hypothyroidism Autoimmune disease Family History Medical History Relation Name Comments No Known Problems Brother 1 No Known Problems Brother 2 Diabetes Father Olegario Hypertension Father Olegario Kidney cancer Maternal Grandmother Grandma Kidney disease Maternal Grandmother Grandma No Known Problems Mother Cancer Paternal Grandfather Ulices Cancer Paternal Grandmother Jelena Diabetes Paternal Grandmother Jelena Kidney cancer Paternal Grandmother Jelena Kidney disease Paternal Grandmother Jelena Relation Name Status Comments Brother 1 Alive Brother 2 Alive Father Olegario Alive Maternal Grandmother Grandma Mother Alive Paternal Grandfather Ulices Paternal Grandmother Jelena Social History Tobacco Use Types Packs/Day Years Used Date Smoking Tobacco: Never Cigarettes Smokeless Tobacco: Never Tobacco Cessation:Counseling Given: Not Answered Alcohol Use Standard Drinks/Week Comments No 0 (1 standard drink = 0.6 oz pur e alcohol) [facility] Utilities Answer Date Recorded In the past 12 months has e electric, gas, oil, or water company threatened to shut off services in your home? No 08/13/2023 Humiliation, Afraid, Rape, and Kick questionnair e Answer Date Recorded Within the last year, have y ou been afraid of your partner or ex-partner? No 08/13/2023 Within the last year, have y ou been humiliated or emotionally abused in other ways by your partner or ex-partner? No Within the last year, have y ou been kicked, hit, slapped, or otherwise physically hurt by your partner or ex-partner? No 08/13/2023 Within the last year, have y ou been raped or forced to have any kind of sexual activity by your partner or ex-partner? No 08/13/2023 Social Connection and Isolat ion Panel [NHANES] Answer Date Recorded In a typical week, how many times do you talk on the phone with family, friends, or neighbors? More than three times a week 08/13/2023 How often do you get togethe r with friends or relatives? More than three times a week 08/13/2023 How often do you attend chur or anabaptist services? Never 08/13/2023 Do you belong to any clubs o r organizations such as bahai groups, unions, fraternal or athletic groups, or school groups? Yes 08/13/2023 How often do you attend meet ings of the clubs or organizations you belong to? More than 4 times per year 08/13/2023 Are you , , di vorced, , never , or living with a partner? 08/13/2023 AUDIT-C Answer Date Recorded Q1: How often do you have a drink containing alc ohol? 2-3 times a week 08/13/2023 Q2: How many drinks containi ng alcohol do you have on a typical day when you are drinking? 3 or 4 08/13/2023 Q3: How often do you have si x or more drinks on one occasion? Less than monthly 08/13/2023 Overall Financial Resource Strain (CARDIA) Answe r Date Recorded How hard is it for you to pa y for the very basics like food, housing, medical care, and heating? Not hard at all 08/13/2023 PHQ-2 Answer Date Recorded PHQ-2 Total Score (If total score is 3 or more points, staff should administer the PHQ-9) 4 09/02/2024 [facility] - Occupational Stress Questionnaire Answer Date Recorded Do you feel stress - tense, restless, nervous, or anxious, or unable to sleep at night because your mind is troubled all the time - these days? Rather much 08/13/2023 Exercise Vital Sign Answer Date Recorde d On average, how many days pe r week do you engage in moderate to strenuous exercise (like a brisk walk)? 0 days 08/13/2023 On average, how many minutes do you engage in exercise at this level? 0 min 08/13/2023 Hunger Vital Sign Answer Date Recorded Within the past 12 months, y ou worried that your food would run out before you got the money to buy more. Never true 08/13/20 23 Within the past 12 months, t he food you bought just didn't last and you didn't have money to get more. Never true 08/13/2023 PRAPARE - Transportation Answer Date Re corded In the past 12 months, has l ack of transportation kept you from medical appointments or from getting medications? No 07/19 In the past 12 months, has l ack of transportation kept you from meetings, work, or from getting things needed for daily living? No 08/13/2023 Housing Stability Vital Sign Answer Howard e Recorded In the last 12 months, was t here a time when you were not able to pay the mortgage or rent on time? No 08/13/2023 In the last 12 months, how many places have you lived? 1 08/13/2023 In the last 12 months, was t here a time when you did not have a steady place to sleep or slept in a usp (including now)? No 08/13/2023 PHQ-9 Answer Date Recorded PHQ-9 Total Score 15 09/02/2024 Comments No Sex and Gender Information Value Date Recorded Sex Assigned at Not on file Legal Sex Female 9:09 AM ASPARAGUS BUNCHER Gender Identity Not on file Sexual Orientation Not on file Obstetrics History Last Filed Vital Signs Vital Sign Reading Time Taken Comments Blood Pressure 104/70 12/09/2024 12:56 PM CDT Pulse 83 12/09/2024 12:56 PM CDT Temperature 36.8 C (98.2 F) 12/09/2024 12:56 PM CDT Respiratory Rate 16 07/10/2024 10:2 9 AM ASPARAGUS BUNCHER Oxygen Saturation 97% 12/09/2024 12: 56 PM CDT Inhaled Oxygen Concentration - - Weight 77.4 kg (170 lb 11.2 oz) 025 12:56 PM CDT Height 164.4 cm (5' 4.72) 12/09/2024 1 2:56 PM CDT Body Mass Index 28.65 12/09/2024 12:56 PM CDT Plan of Treatment Health Maintenance Due Date Last Done Comments DTaP/Tdap/Td Vaccine (1 - Tdap) 02/27/1992 Regular Well Visit/Exam 18-64 1999 Covid-19 Vaccine (3 - season) 2024 08/04/2021, 10/24/2020 Cervical Cancer Screening 04/29/2024 04/29/2023, Influenza Vaccine (Season Ended) 2025 08/13/2023, 05/18/2022, 08/04/2021 Pneumococcal vaccine <65 (1 of 2 - PCV) 08/17/2025 Postponed from 02/27/2000 (Patient declined, but will receive in the future) Zoster Vaccine (1 of 2) 09/01/2025 Post poned from 02/27/2000 (Patient declined, but will receive in the future) Depression Screening 09/02/2025 09/02/2024, 09/02/2024, 08/13/2023, Additional history exists Breast Cancer Screening-Mammogram 12/03/2025 12/03/2024, 09/05/2022, 05/10/2021 Hepatitis B Screening Completed 09/02/2024 Hepatitis C Screening Completed 09/02/2024 HPV Vaccines Aged Out No longer eligi ble based on patient's age to complete this topic Varicella Vaccines Discontinued Procedures Procedure Name Priority Date/Time Associated Diagnosis Comments MAMMOGRAPHY Routine 12/03/2024 3:38 PM CDT HEPATITIS C ANTIBODY Routine 09/02/2024 10:30 AM ASPARAGUS BUNCHER Encounter for hepatitis C screening test for low risk patient GENITAL FLUID PAP SMEAR, THIN PREP AND HPV Routine 02/01/2020 from Last 3 Months or Most Recently Relevant to Health Maintenance Results * MAMMOGRAPHY (12/03/2024 3:38 PM CDT) Historical Provider HEALTH MAINTENANCE Final Result * Hepatitis C antibody Blood (09/02/2024 10:30 AM ASPARAGUS BUNCHER) Hep C Ab Nonreactive Nonreactive Comment: Interpretive Data Nonreactive: Antibodies to HCV not detected. Does NOT exclude the possibility of recent exposure to HCV. Equivocal: Equivocal for HCV antibodies. Supplemental molecular testing will be automatically performed to determine infection status in accordance with current CDC screening recommendations. Reactive: Positive for HCV antibodies. This may represent current or past HCV infection. Supplemental molecular testing will be automatically performed to determine current infection status in accordance with current CDC screening recommendations. Interpretive data was last revised on 2019. Blood 09/02/2024 10:3 0 AM ASPARAGUS BUNCHER 09/02/2024 6:32 PM ASPARAGUS BUNCHER Daniella Stark NP LAB MICROBIOLOGY - GENERAL OR DERABLES Final Result Performing Organization Address City/State/[place]IP [place] Phone Number [facility] [address] Department [place] [address] * Genital fluid pap smear, thin prep and HPV (02/01/2020) 02/01/2020 Historical Provider LAB CYTOLOGY ORDERABLES F inal Result from Last 3 Months or Most Recently Relevant to Health Maintenance Insurance [facility] PLUS [facility] Care Teams Pot Fluxer Relationship Specialty Start Date End Date Nahun Olmos MD [address] [place] [address] PCP - General Family Medicine 09/27/20
--- OUTSIDE RECORDS SUMMARY | 2025-01-17 16:19 | XMS_ITS | Clinical Summary ---
Author Organization [facility] Address [address] [place] [address] Care Team Providers Care Firmware Architect Name Role Phone Unavailable Primary Care Provider Unavailabl e Source Comments [facility],non-owned Affiliates and Associated Physician Practices is amultiple site organization consisting of ambulatory clinics and hospital sitesin [place], [place], [place] and [place]. This disclosure is being madepursuant to the Care Everywhere program and may not contain all information available regarding this patient. Last updated 18.[facility] Social History Tobacco Use Types Packs/Day Years Used Date Smoking Tobacco: Never Assessed Comments Unknown Sex and Gender Information Value Date Recorded Sex Assigned at Not on file Legal Sex Female 10:56 AM CDT Gender Identity Not on file Sexual Orientation Not on file Plan of Treatment Health Maintenance Due Date Last Done Comments LIPID TESTING 1981 MAMMOGRAM 1981 PAP SMEAR 1981 HIV SCREENING 02/27/1996 HEPATITIS C SCREENING 02/22/1999 DTAP/TDAP/TD VACCINES (1 - Tdap) 02/27/2000 HEPATITIS B VACCINE (1 of 3 - 19+ 3-dose series) 02/27/2000 COVID-19 VACCINE ( - 2023-2 5 season) 2024 DEPRESSION SCREENING 08/18/2024 INFLUENZA VACCINE (Season Ended) 2025 ZOSTER VACCINE (1 of 2) 2031 HIB VACCINE Aged Out No longer eligi ble based on patient's age to complete this topic HPV VACCINE Aged Out No longer eligi ble based on patient's age to complete this topic MENINGOCOCCAL (Group B) VACC INE SHARED DECISION-MAKING Aged Out No longer eligibl e based on patient's age to complete this topic MENINGOCOCCAL GROUPS A/C/Y/W VACCINE Aged Out No longer eligible b ased on patient's age to complete this topic PNEUMOCOCCAL VACCINE Aged Out No long er eligible based on patient's age to complete this topic Insurance [facility] Address: [address] [place] [address] [facility]
--- OUTSIDE RECORDS SUMMARY | 2025-01-17 16:19 | XMS_ITS | Referral Summary ---
Author Organization [facility] Address [address] [place] [address] Care Team Providers Care Financial Analysis Manager Name Role Phone Nahun Olmos MD Primary Care Provider [phone] Encounters Date Type Department Care Team Description 12/09/2024 Orders Only [facility] Primary Care at [address] [address] ProviderNatasha MD 12/09/2024 1:00 PM CDT Office Visit [facility] Primary Care at [address] [place] [address] Daniella Stark, DULCE NAI (generalized anxiety disorder) (Primary Dx) from Last 3 Months Allergies Active Allergy Reactions Criticality Noted Date [...] 08/13/2023 Assessment & Plan (08/13/2023 11:44 AM PLANT WRAPPER): New onset; sporadic Occurs with legs elevated and at night Magnesium and B12 labs ordered Inflammatory arthritis 01/30/2023 Assessment & Plan (08/13/2023 11:46 AM PLANT WRAPPER): Stable; follows with rheumatology Continue Plaquenil 200 [...] given Assessment & Plan (08/01/2022 10:07 AM PLANT WRAPPER): Patient has instability of right SI joint; pain after running or intense activity; but able to perform functions at job Patient following with PT for management Concern for Ehler's Danlos Hypermobility Syndrome; patient referred to Rheumatology for further evaluation Hyperthyroidism 01/24/2022 Assessment & Plan (08/13/2023 11:45 AM PLANT WRAPPER): Stable, well controlled Appt with endocrinology tomorrow Continue Methimazole 2.5 mg daily Assessment & Plan (01/30/2023 2:01 PM CDT): Stable, well controlled; follows with Endocrinology; per patient normal labs No major issues at this time Continue to follow methimazole 2.5 mg daily Assessment & Plan (08/01/2022 10:08 AM PLANT WRAPPER): Stable, well controlled; patient follows with endocrinology [...] exercises Assessment & Plan (10/25/2021 12:25 PM PLANT WRAPPER): Stable, improving; patient continues to have some dual soreness and achiness, limited ability to exercise and run which aggravates pain Patient to continue with home exercise program for next 3 months; if no significant improvement, would consider referral to outside specialist to re-evaluate pain Assessment & Plan (10/11/2021 1:10 PM PLANT WRAPPER): Continues to have significant pain and tailbone after injury and summer 2017 Has to still on all the time, has a dull aching pain with sitting and pain when is changing from sitting to standing Encouraged routine exercise, consider referral to physical therapy Assessment & Plan (07/26/2021 12:32 PM PLANT WRAPPER): Stable, improving; patient reports good response to [...] activities Assessment & Plan (10/11/2021 1:10 PM PLANT WRAPPER): Stable, well controlled; continue QVAR 1 puff b.i.d. Albuterol p.r.n. and for exercise Assessment & Plan (07/26/2021 12:32 PM PLANT WRAPPER): Stable, well controlled; continue QVAR 40 mcg, 1 puff b.i.d.; albuterol p.r.n. Assessment & Plan (10/26/2020 3:54 PM PLANT WRAPPER): Discussed with patient use of albuterol prior to exercise to reduce bronchspasm -can use inhaled steroid for seasonal worsening of symptoms. Chronic allergic rhinitis 10/26/2020 Assessment & Plan (08/01/2022 10:08 AM PLANT WRAPPER): Stable, generally well controlled Continue Cetirizine 10 mg daily; will switch to astelin nasal spray given excessive drying in cold weather with Flonase. Assessment & Plan (01/24/2022 12:25 PM CDT): Will, generally well controlled; patient reports symptoms are now manageable Continue Zyrtec 10 mg daily, Flonase 2 sprays each nostril daily Assessment & Plan (10/25/2021 12:26 PM PLANT WRAPPER): Has been worse over the last month, patient continues to use Zyrtec 10 mg, Flonase 50 mg 2 sprays each nostril daily, QVAR as needed for asthma Encouraged patient continue with general management Assessment & Plan (10/11/2021 1:11 PM PLANT WRAPPER): Stable, continue Flonase 2 sprays each nostril daily Assessment & Plan (07/26/2021 12:32 PM PLANT WRAPPER): Stable well controlled; continue Flonase 2 sprays each nostril daily Assessment & Plan (10/26/2020 3:55 PM PLANT WRAPPER): Stable, well controlled, good improvement with Flonase [...] beats 09/13/2014 09/27/2020 Overview (11/23/2016): Premature beats Immunizations Immunization Administration Dates Next Due Influenza, Quadrivalent, Spl it, Preservative Free, Intramuscular 08/13/2023 Influenza, Trivalent, IM (MDV) 08/04/2021 Influenza, Unspecified 09/01/2024(Deferr ed: Patient Refused),05/24/2024(Deferred: Patient Refused),01/30/2023(Deferred: Patient Refused),05/18/2022,07/26/2021(Deferre d: Patient Refused),05/03/2021(Deferred: Patient Refused),05/03/2021(Deferred: Patient Refused),09/27/2020(Deferred: Patient Refused),08/18/2020(Deferred: Patient Refused),08/18/2020(Deferred: Patient Refused),08/18/2020(Deferred: Patient Refused),08/18/2019(Deferred: Patient Refused) [employer] ([employer]) SARS-CoV-2 Vaccination 10/24/2020 PPD TEST 01/05/2024 Social History Tobacco Use Types Packs/Day Years Used Date Smoking Tobacco: Never Cigarettes Smokeless Tobacco: Never Tobacco Cessation:Counseling Given: Not Answered Alcohol Use Standard Drinks/Week Comments No 0 (1 standard drink = 0.6 oz pur e alcohol) [facility] Utilities Answer Date Recorded In the past 12 months has [facility] [employer], or water [employer] threatened to shut off services in your [...] 08/13/2023 How often do you attend chur ch or anabaptist services? Never 08/13/2023 Do you belong to any clubs o r organizations such as hoahaoism groups, unions, fraternal or athletic groups, or [...] staff should administer the PHQ-9) 4 09/02/2024 [facility] - Occupational Stress Questionnaire Answer Date Recorded [...] place to sleep or slept in a detention (including now)? No 08/13/2023 PHQ-9 Answer Date Recorded PHQ-9 Total Score 15 09/02/2024 Comments No Sex and Gender Information Value Date Recorded Sex Assigned at Not on file Legal Sex Female 9:09 AM PLANT WRAPPER Gender Identity Not on file Sexual Orientation Not on file Last Filed Vital Signs Vital Sign Reading Time Taken Comments Blood Pressure 104/70 12/09/2024 12:56 PM CDT Pulse 83 12/09/2024 12:56 PM CDT Temperature 36.8 C (98.2 F) 12/09/2024 12:56 PM CDT Respiratory Rate 16 07/10/2024 10:2 9 AM PLANT WRAPPER Oxygen Saturation 97% 12/09/2024 12: 56 PM CDT Inhaled Oxygen Concentration - - Weight 77.4 kg (170 lb 11.2 oz) 025 12:56 PM CDT Height 164.4 cm (5' 4.72) 12/09/2024 1 2:56 PM CDT Body Mass Index 28.65 12/09/2024 12:56 PM CDT Plan of Treatment Not on file Procedures Procedure Name Priority Date/Time Associated Diagnosis Comments MAMMOGRAPHY Routine 12/03/2024 3:38 PM CDT HEPATITIS C ANTIBODY Routine 09/02/2024 10:30 AM PLANT WRAPPER Encounter for hepatitis C screening test for low risk patient GENITAL FLUID PAP SMEAR, THIN PREP AND HPV Routine 02/01/2020 from Last 3 Months or Most Recently Relevant to Health Maintenance Results * MAMMOGRAPHY (12/03/2024 3:38 PM CDT) Historical Provider HEALTH MAINTENANCE Final Result * Hepatitis C antibody Blood (09/02/2024 10:30 AM PLANT WRAPPER) Hep C Ab Nonreactive Nonreactive Comment: Interpretive [...] on 2019. Blood 09/02/2024 10:3 0 AM PLANT WRAPPER 09/02/2024 6:32 PM PLANT WRAPPER Daniella Stark NP LAB MICROBIOLOGY - GENERAL OR DERABLES Final Result Performing Organization Address City/State/[facility] Co ne Phone Number [facility] [address] [address] [place] [address] * Genital fluid pap smear, thin prep and HPV (02/01/2020) 02/01/2020 Historical Provider LAB CYTOLOGY ORDERABLES F inal Result from Last 3 Months or Most Recently Relevant to Health Maintenance Insurance [facility] PLUS [facility] PLUS [place] [id number] Care Teams Financial Analysis Manager Relationship Specialty Start Date End Date Nahun Olmos MD [place] [address] PCP - General Family Medicine 09/27/20
[2025-01-17 16:22] VITALS: BP 140/94; PULSE 89; RESP 20; TEMP 36.4; O2SAT 100
--- NOTE | 2025-01-17 16:30 | ED.LOWEXIN ---
HPI - Extremity Injury (Lower) General Chief Complaint: Extremity Injury, Lower Stated Complaint: Toe Injury Time Seen by Provider: 01/17/25 16:25 Source: patient and RN notes reviewed Mode of arrival: ambulatory Limitations: no limitations History of Present Illness HPI Narrative: 44-year-old female Presents Express Care complaining of injury to left foot. Patient reports approximately 3-4 days ago she dropped her phone from her chest height and fell directly onto the top of her foot. Patient is not where in she is reports wearing socks in the injury occurred. Since since then the patient has had distal medic tarsal pain near her but great toe and pain with ambulating. Patient reports some minor swelling to the area. Patient's has been ice at home with some relief. Patient denies any numbness, tingling or any other injuries. Patient has a history of rheumatoid arthritis. Related Data Home Medications ?Medication ?Instructions ?Recorded ?Confirmed ?Last Taken ?Type multivitamin,qj-socy-eszumwzo 1 tablet PO DAILY 02/01/20 12/09/24 Unknown History (Complete Multivitamin tablet) cetirizine 10 mg capsule (Zyrtec) 10 mg PO DAILY PRN 02/12/21 12/09/24 Unknown History hydroxychloroquine 200 mg tablet 200 mg PO BID 12/05/22 12/09/24 Unknown History diclofenac potassium 25 mg tablet mg PO BID 03/20/23 12/09/24 Unknown History magnesium 250 mg tablet 250 mg PO DAILY 12/09/24 12/09/24 Unknown History buspirone 5 mg tablet mg 01/17/25 Unknown History escitalopram oxalate 20 mg tablet mg 01/17/25 Unknown History Allergies Allergy/AdvReac Type Severity Reaction Status Date / Time codeine Allergy Intermediate Rash Verified 01/17/25 16:27 Penicillins Allergy Intermediate Rash Verified 01/17/25 16:27 Review of Systems Review of Systems: CONSTITUTIONAL: Denies fever, chills, or sweats. EYES: Denies visual changes, redness, or discharge. ENT: Denies rhinorrhea, congestion, sore throat, or otalgia. CARDIOVASCULAR: Denies chest pain, palpitations, or edema. RESPIRATORY: Denies cough or dyspnea. GASTROINTESTINAL: Denies abdominal pain, nausea, vomiting, or diarrhea. GENITOURINARY: Denies dysuria or hematuria. SKIN: Denies rash, wound, or itching. MUSCULOSKELETAL: Denies back pain, joint pain, or myalgia. Positive for left foot injury and swelling NEUROLOGIC: Denies headache, numbness, or weakness. PSYCHIATRIC: Denies anxiety or depression. All other systems reviewed are negative, except as documented in HPI. [facility] Past Medical History Medical History Rheumatoid arthritis Graves disease Thyroid disease Allergies Thyroid disease Missed Vaginal delivery x 2 Surgical History Surgical History S/P LASIK surgery of both eyes Family History Family History Father Hypertension Family history of elevated blood lipids Family history of development disorder Grandparent Hypertension Family history of elevated blood lipids Family history of lung cancer, Onset Age: 199 Family history of malignant neoplasm of kidney, Onset Age: 196 Diabetes mellitus Other Lung cancer Renal cancer Social History Social History Smoking status: Never smoker Second hand tobacco smoke exposure: No Alcohol intake: current Substance use: never Lack of Transportation: No Lack of Food: Never True Current Housing: I Have Housing Concerned About Future Housing: No Difficulty Paying Gas/Electric Bills: No Difficulty Paying for Meds: No Currently Unemployed: No Education: Bachelor's Degree Difficulty w/ Childcare or Family Care: No Living arrangements: with family Occupation/Education: occupation Gender identity (if verbalized by the patient): Female Sexual Orientation (if Verbalized by the Patient): Straight or Heterosexual Spiritual care concerns: No Comments At the time of my signature, I reviewed and agree with the nursing past medical, surgical, social, and family history. There is no relevant family history pertinent to the patient complaint. Exam Narrative: GENERAL: This is a well-nourished, well-developed adult, in no apparent distress. They are non ill-appearing, nontoxic appearing. HEAD: normocephalic, atraumatic. EYES: Sclera clear/white. Vision is grossly intact. Conjunctiva normal. Extraocular movement intact. EARS: External ears normal Hearing grossly intact. NOSE: External nose normal THROAT: Mucous membranes moist NECK: Neck supple CARDIOVASCULAR: Regular rate and rhythm RESPIRATORY: Respiratory rate normal, respiratory effort nonlabored, no respiratory distress NEURO: awake, alert, and oriented to person, place and time. There were no obvious focal neurologic abnormalities. EXTREMITIES: Left foot: No obvious deformity, injury, bruising, redness. Mild swelling to the distal dorsal surface of the foot near the great and 2nd toe. Normal range of motion. Normal dorsiflexion and plantar flexion of left foot. Negative Robin's test. Tenderness to palpation near distal 1st and 2nd metatarsal. Capillary refill less than 3 seconds. Left pedal Pulse 2 +palpable. Normal sensation. Neurovascular status intact distal injury. Patient is able to wiggle her toes. BACK: Nontender without deformity. Course Course Emergency Course: Portions of this record may have been created with voice recognition software Level of Care: Express Care Visit Vital Signs Vital signs: Vital Signs Temperature 97.6 F 01/17/25 16:22 Pulse Rate 89 01/17/25 16:22 Respiratory Rate 20 01/17/25 16:22 Blood Pressure 140/94 H 01/17/25 16:22 Pulse Oximetry 100 01/17/25 16:22 Oxygen Delivery Room Air 01/17/25 16:22 Temperature 97.6 F 01/17/25 16:22 Pulse Rate 89 01/17/25 16:22 Respiratory Rate 20 01/17/25 16:22 Blood Pressure 140/94 H 01/17/25 16:22 Pulse Oximetry 100 01/17/25 16:22 Oxygen Delivery Room Air 01/17/25 16:22 Reviewed MDM - Extremity Injury (Lower) MDM Narrative Medical decision making narrative: X-ray left foot showed no evidence of a fracture or acute findings. X-ray shows a dystrophic calcification cannot exclude foreign body. Foreign body unlikely given patient's mechanism of injury. She says she has bone spurs and her other foot. Offered patient Reid wrap and postop shoe for comfort and she declined. Discussed physical exam findings. Advised supportive measures and signs/symptoms to go to the ER. Pt is appropriate for outpt treatment and f/u. Differential Diagnosis Differential diagnosis: Likely fracture of toe and other (Foot fracture, foot strain) Imaging Data Radiologist's impression: ITS Impressions Foot X-Ray 01/17/25 16:49 IMPRESSION: 1. No acute osseous abnormality. 2. 1 mm density at or within 1 mm of the skin surface medial to the head of the first metatarsal which could represent a dystrophic calcification or foreign body. Critical Care Time Critical Care Time Critical Care Time: No Discharge Plan Discharge Clinical Impression: Crush injury of left foot Qualifiers: Encounter type: initial encounter Qualified Code(s): S97.82XA - Crushing injury of left foot, initial encounter Patient Disposition: Home Condition: Stable Instructions: Foot Sprain (ED) Additional Instructions: Your x-ray was negative for any acute fractures or findings. Rest and elevate the leg; bear weight as tolerated Apply ice 15-20 minute intervals several times a day Keep it wrapped with REID for compression Motrin 600mg -800mg every 8 hours, alternate with Tylenol 1000mg every 8 hours as needed Follow up with your primary care provider in 1-2 weeks if pain persists. Patient Language: Uzbek Prescriptions: No Action buspirone 5 mg tablet escitalopram oxalate 20 mg tablet methimazole 5 mg tablet 5 mg PO DAILY 90 Days Qty: 90 2RF norethindrone-e.estradiol-iron [Loestrin Fe 09/06 (28-Day)] 1 mg-20 mcg (21)/75 mg (7) tablet 1 tablet PO DAILY Qty: 84 4RF Rx Instructions: pt to take continuously with skipping placebo week each month magnesium 250 mg tablet 250 mg PO DAILY Complete Multivitamin Tablet 1 tablet PO DAILY Zyrtec 10 mg capsule 10 mg PO DAILY PRN hydroxychloroquine 200 mg tablet 200 mg PO BID diclofenac potassium 25 mg tablet PO BID Follow-up/Referrals: Amarilis,MD Nahun [Primary Care Provider] - Time of Disposition: 17:15
== END 2025-01-17 17:26 | disposition home or self-care (01) ==
PROVIDERS: PCP Hospitalist
DX: S97.82XA Crushing injury of left foot, initial encounter (principal); W20.8XXA Other cause of strike by thrown, projected or falling object, initial encounter; M06.9 Rheumatoid arthritis, unspecified; E05.00 Thyrotoxicosis with diffuse goiter without thyrotoxic crisis or storm; E07.9 Disorder of thyroid, unspecified
CPT/HCPCS: 73630; 99213; G0463